=== PATIENT | female | born 1950 | race Caucasian/White ===

== ENCOUNTER 2019-02-19 10:47 | Day surgery (SDC) | payer MEDICARE, SELFPAY ==
[2019-02-19] MEDS: SODIUM CHLORIDE 0.9% 1,000 ML 42 ML IV (11:25)
[2019-02-19 11:26] VITALS: BP 105/66; PULSE 87; RESP 16; TEMP 36.2; O2SAT 94; BMI 35.9
--- NOTE | 2019-02-19 12:32 | PM.HP.1 ---
History of Present Illness Chief complaint: [id number] SCREENING COLONOSCOPY Patient History Medical History (Updated 02/19/19 @ 11:33 by Hermila Emerson RN) ADD (attention deficit disorder) (Acute) Acid reflux (Acute) Arthritis (Acute) Back pain (Acute) Glaucoma (Acute) History of anemia (Acute) Hypothyroidism (Acute) Kidney stones (Acute) Migraine headache (Acute) Social History household members: spouse Family & Social History Social History: household members spouse Meds Home Medications Medication Instructions Recorded Confirmed Type acetaminophen 1,000 mg PO BID 02/19/19 02/19/19 History [id number] [Beano] 1 tab PO BID 02/19/19 02/19/19 History atorvastatin 10 mg PO DAILY 02/19/19 02/19/19 History diflunisal 500 mg PO BID 02/19/19 02/19/19 History fluoxetine 40 mg PO DAILY 02/19/19 02/19/19 History levothyroxine 50 mcg PO DAILY 02/19/19 02/19/19 History pregabalin [Lyrica] 75 mg PO TID 02/19/19 02/19/19 History ranitidine HCl 150 mg PO BID 02/19/19 02/19/19 History Allergies Allergy/AdvReac Type Severity Reaction Status Date / Time codeine Allergy Intermediate Nausea & Verified 02/19/19 11:12 Vomiting latex Allergy Intermediate Itchy Rash Verified 02/19/19 11:12 sulfamethoxazole AdvReac Severe N&V Verified 02/19/19 11:12 [From ] trimethoprim [From ] AdvReac Severe N&V Verified 02/19/19 11:12 Exam Vital Signs (past 8 hours): - 02/19/19 11:26 Temperature 97.1 F L Pulse Rate 87 Respiratory Rate 16 Blood Pressure 105/66 Pulse Oximetry 94 Oxygen Delivery Method Room Air Narrative Exam Narrative: Oropharynx free of lesions Chest clear to auscultation percussion Cardiac exam reveals no S3 or murmur Assessment & Plan Assessment & Plan narrative: Need for 1st colorectal cancer screening with colonoscopy. Risks, benefits, alternatives have been explained. Further recommendations will follow the results of that study.
--- NOTE | 2019-02-19 12:33 | PM.OP.ENDO ---
Operative Date/Time/Diagnoses Date of procedure: 02/19/19 Time of procedure: 12:33 Pre-op diagnosis: See indication and findings Procedure & Clinicians Study performed: Colonoscopy Same procedure as scheduled: Yes Surgeon: Tomer Stevens Procedure Notes Procedure in detail: After informed consent was obtained the patient was placed in left lateral decubitus position. The video colonoscope was introduced to the rectum and slowly advanced to the cecum. On slow withdrawal mucosa was carefully examined. Preparation was good. Scope was removed. The patient tolerated the procedure well. Blood loss none Complications none Sedation Total sedation time 17 minutes Fentanyl 100 mg Versed 4 mg IV titration Findings 1.0 normal colonoscopy to cecum Ms. Robles will need follow-up colonoscopy in 10 years.
[2019-02-19] MEDS: fentaNYL 250 MCG/5 ML INJ IV (13:06)
[2019-02-19] MEDS: MIDAZOLAM 5 MG/5 ML VIAL IV (13:07)
[2019-02-19 13:20] VITALS: BP 94/57; PULSE 69; RESP 18; TEMP 36.1; O2SAT 92
[2019-02-19 13:24] VITALS: BP 97/56; PULSE 69; RESP 20; O2SAT 95
[2019-02-19 13:32] VITALS: BP 103/61; PULSE 71; RESP 15; O2SAT 96
[2019-02-19 13:37] VITALS: BP 106/61; PULSE 71; RESP 15; TEMP 36.2; O2SAT 95
[2019-02-19 13:45] VITALS: BP 98/65; PULSE 65; TEMP 36.2; O2SAT 96
== END 2019-02-19 13:54 | disposition home or self-care (01) ==
LOC: ENDO 10:53
PROVIDERS: PCP Internal Medicine; Visit Provider Internal Medicine Gastroenterology
PROC: 0DJD8ZZ Inspection of Lower Intestinal Tract, Via Natural or Artificial Opening Endoscopic (ICD-10-PCS; CPT 45378; principal; 2019-02-19 12:30)
DX: Z12.11 Encounter for screening for malignant neoplasm of colon (principal)
CPT/HCPCS: G0121; J2250; J3010

== ENCOUNTER → 2021-08-03 08:53 | Outpatient (CLI) | payer MEDICARE, SELFPAY ==
--- NOTE | 2021-08-03 | DI.MRI.S_ITS ---
PROCEDURE: MR LUMBAR SPINE WO CON INDICATIONS: Low back pain TECHNIQUE: Noncontrast sagittal T1 spin echo and T2 fast echo, sagittal STIR, axial T1 and T2 fast spin echo through the lumbar spine. In cases with scoliosis, additional coronal T2 fast spin echo may be performed. COMPARISON: [facility], MR, MR LUMBAR SPINE WITHOUT CONTRAST, 05/27/2019, 8:48. FINDINGS: Image quality: Excellent. Alignment and Curvature: There is normal bony alignment. Bone Marrow: L4-5 discectomy and fusion with posterior maggi and screw instrumentation noted. Mottled marrow signal noted in the right sacral ala, new from the prior exam Spinal Cord: Conus medullaris terminates at the L1 level. Visualized cord demonstrates normal signal and size. Paraspinous Soft Tissues: No paravertebral masses. T12-L1: Disc space is preserved. No disc bulge, protrusion present. No central foraminal stenosis. Incidental right perineural cyst noted. L1-L2: Normal appearance. L2-L3: Normal appearance. L3-L4: Disc height is preserved. Circumferential disc bulge and hypertrophic facet joints present with mild central stenosis. Persistent moderate bilateral foraminal stenosis L4-L5: Discectomy and fusion. Central canal is widely patent. No foraminal stenosis. L5-S1: Normal appearance. IMPRESSION: 1. Persistent L3-4 moderate bilateral foraminal stenosis, stable from the prior next 2. Stable L4-5 discectomy and fusion with posterior instrumentation. 3. New mottled partially imaged marrow signal in the right sacral ala may reflect edema from subacute or chronic fracture. Consider follow-up CT Approved by: Mono Allan M.D. on 08/03/2021 at 11:04
== END ==
PROVIDERS: PCP Internal Medicine; Referring Provider Anesthesiology Pain Medicine; Visit Provider Anesthesiology Pain Medicine
DX: M48.061 Spinal stenosis, lumbar region without neurogenic claudication (principal); R29.898 Other symptoms and signs involving the musculoskeletal system; M54.50 Low back pain, unspecified; Z98.1 Arthrodesis status
CPT/HCPCS: 72148

== ENCOUNTER → 2021-10-26 14:54 | Outpatient (CLI) | payer MEDICARE, SELFPAY ==
--- NOTE | 2021-10-26 | DI.CT.S_ITS ---
PROCEDURE: CT PEL WO CON INDICATIONS: Pelvic and perineal pain Left sided groin pain TECHNIQUE: Noncontrast 3 mm axial sections acquired through the bony pelvis, with coronal and sagittal reformatting. COMPARISON: [facility], MR, MR LUMBAR SPINE WO CON, 08/03/2021, 9:40. FINDINGS: Image quality: Excellent. Bones: Cortical irregularity involving anterior cortex of bilateral sacral ala is seen concerning for acute to subacute insufficiency fracture in these areas. Small anteriorly displaced fractured fragment involving left sacral ala is seen. Increased radiolucencies involving bilateral sacrum are seen suggestive of areas of osteoporosis. Comminuted acute to subacute appearing fracture involving medial aspect of left pubic bone adjacent to symphysis pubis is seen extending to inferior pubic ramus with anterior and lateral displacement of the fractured fragments. Osteoarthritic changes throughout bony pelvis without evidence avascular necrosis of femoral head. Postfusion changes are noted in visualized lower lumbar spine. Soft tissues: Soft tissue swelling adjacent to left pubic bone fracture site is seen with surrounding soft tissue edema. Mild soft tissue swelling along anterior aspect of bilateral sacral fracture site is seen. No pelvic free fluid or free air. No abnormal bowel wall thickening or bladder wall thickening. No pelvic lymphadenopathy. Bilateral pelvic muscles show no abnormal density. No soft tissue mass or drainable fluid collection. IMPRESSION: 1. Acute to subacute appearing comminuted and slightly displaced fracture involving left pubic bone adjacent to symphysis pubis with fracture line extending to involve left inferior pubic ramus. Fracture line is also seen extending to symphysis pubis. 2. Acute to subacute appearing insufficiency fracture involving left sacral ala with mildly displaced fractured fragment. Subacute to chronic appearing insufficiency fracture involving right sacral ala. 3. Osteoarthritis throughout bony pelvis. No evidence of avascular necrosis of femoral head. 4. Mild soft tissue swelling and edema surrounding left pubic bone fracture site. No pelvic free fluid or free air. No discrete soft tissue mass or fluid collection. Dictated by: Tae Correa M.D. on 10/27/2021 at 8:56 Approved by: Tae Correa M.D. on 10/27/2021 at 9:03
== END ==
PROVIDERS: PCP Internal Medicine; Referring Provider Physical Medicine & Rehabilitation Pain Medicine; Visit Provider Physical Medicine & Rehabilitation Pain Medicine
DX: S32.592A Other specified fracture of left pubis, initial encounter for closed fracture (principal); S32.19XA Other fracture of sacrum, initial encounter for closed fracture; R10.2 Pelvic and perineal pain; M19.09 Primary osteoarthritis, other specified site; X58.XXXA Exposure to other specified factors, initial encounter
CPT/HCPCS: 72192